=== PATIENT | male | born 1975 | race Two or more races ===

== ENCOUNTER 2019-04-18 15:25 | Emergency (ER) | payer MEDICAID, SELFPAY ==
[~2019-04-18] VITALS: Ht 193 cm; Wt 117.4 kg
--- NOTE | 2019-04-18 16:17 | NUR ---
PT WALKED BACK FROM LOBBY TO ROOM AT THIS TIME. STEADY UPON AMBULATION.
[2019-04-18] MEDS ORDERED: LIDOCAINE 1%, 10ML INFIL ONE (18:00)
[2019-04-18] MEDS ORDERED: LIDOCAINE-MPF 1%, 5ML ONE (18:08)
[2019-04-18 19:29] VITALS: BP 144/97
== END 2019-04-18 19:31 | disposition home or self-care (01) ==
LOC: ED 19:20
DX: L03.113 Cellulitis of right upper limb (principal); F17.200 Nicotine dependence, unspecified, uncomplicated
CPT/HCPCS: 10060; 99283; J3490

== ENCOUNTER 2019-04-20 16:21 | Emergency (ER) | payer MEDICAID ==
[~2019-04-20] VITALS: Ht 193 cm; Wt 116.6 kg
[2019-04-20 16:24] VITALS: BP 161/79
== END 2019-04-20 16:50 ==
LOC: ED 16:40
DX: L03.113 Cellulitis of right upper limb (principal)
CPT/HCPCS: 99283